=== PATIENT | male | born 1980 | race Hispanic/Latino ===

== ENCOUNTER 2023-02-04 14:55 | Emergency (ER) | payer OTHER ==
[~2023-02-04] VITALS: Ht 177.8 cm; Wt 131.5 kg
[~2023-02-04 14:55] MED LIST: NAPROSYN500 MG PO; ORPHENADRINE C100 MG PO
[2023-02-04 15:12] VITALS: O2SAT 98
== END 2023-02-04 16:24 | disposition home or self-care (01) ==
LOC: ER 15:13
DX: R50.9 Fever, unspecified (principal); B34.9 Viral infection, unspecified; R05.9 Cough, unspecified; F17.210 Nicotine dependence, cigarettes, uncomplicated
CPT/HCPCS: 87400; 99283

== ENCOUNTER 2023-04-17 05:33 | Emergency (ER) | payer OTHER ==
[~2023-04-17] VITALS: Ht 177.8 cm; Wt 131.5 kg
[2023-04-17] MEDS ORDERED: ONDANSETRON HCL INJ 2MG/ML 2ML 2 MG/ML VIAL IV STA (05:45)
[2023-04-17] MEDS ORDERED: SODIUM CHLORIDE 0.9% 1000ML 1,000 ML IV STA (05:45)
[2023-04-17] MEDS ORDERED: KETOROLAC TROMETHAMINE 30 MG/ML VIAL IV STA (05:45)
[2023-04-17 06:01] LABS: BASOPHILS # (AUTO) 0.1 (0.0-0.1); EOSINOPHILS # (AUTO) 0.6 (0.0-0.4); EOSINOPHILS % 8.9 % (0.0-6.0); HEMOGLOBIN 15.5 g/dL (14.0-18.0); LYMPHOCYTES # (AUTO) 1.9 (1.0-3.2); LYMPHOCYTES % 27.2 % (18.0-39.1); MEAN CORPUSCULAR HEMOGLOBIN 31.4 pg (28-32); MEAN CORPUSCULAR VOLUME 95.1 fL (81-99); MONOCYTES # (AUTO) 0.8 (0.2-0.8); NEUTROPHILS # (AUTO) 3.5 (2.1-6.9); NEUTROPHILS % 51.5 % (38.7-80.0); PLATELET COUNT 245 x10e3/uL (140-360); RED BLOOD COUNT 4.94 x10e6/uL (4.3-5.7); RED CELL DISTRIBUTION WIDTH 12.3 % (11.7-14.4); WHITE BLOOD COUNT 6.84 x10e3/uL (4.8-10.8)
[2023-04-17 06:21] LABS: ALBUMIN 3.6 g/dL (3.5-5.0); ALBUMIN/GLOBULIN RATIO 0.9 (0.8-2.0); ANION GAP 14.2 mmol/L (8-16); CALCIUM 9.1 mg/dL (8.4-10.2); CREATININE, SERUM 0.78 mg/dL (0.72-1.25); POTASSIUM 4.2 mmol/L (3.5-5.1); TOTAL PROTEIN 7.4 g/dL (6.5-8.1)
[2023-04-17 06:29] LABS: BILIRUBIN,TOTAL 0.6 mg/dL (0.2-1.2)
[2023-04-17] MEDS ORDERED: ONDANSETRON ODT4 MG PO (07:08)
[2023-04-17] MEDS ORDERED: MUCINEX DM ER1 EAC1 PO (07:08)
[2023-04-17 07:38] VITALS: BP 124/76; PULSE 71; RESP 16; TEMP 98.7; O2SAT 100
== END 2023-04-17 07:41 | disposition home or self-care (01) ==
LOC: ER 05:40
DX: R05.9 Cough, unspecified (principal); J40 Bronchitis, not specified as acute or chronic; B34.9 Viral infection, unspecified; R11.2 Nausea with vomiting, unspecified; Z11.52 Encounter for screening for COVID-19
CPT/HCPCS: 36415; 71046; 80053; 83518; 83690; 85025; 87070; 87400; 99284; J1885; J2405; J7030; U0002

== ENCOUNTER 2023-10-17 13:07 | Emergency (ER) | payer OTHER ==
[~2023-10-17] VITALS: Ht 177.8 cm; Wt 126.1 kg
[~2023-10-17 13:07] MED LIST changes: +MUCINEX DM ER1 EAC1 PO; +ONDANSETRON ODT4 MG PO
[2023-10-17 14:30] VITALS: PULSE 81; RESP 17; TEMP 98; O2SAT 100
[2023-10-17] MEDS ORDERED: ZITHROMAX500 MG PO (17:21)
== END 2023-10-17 17:35 | disposition home or self-care (01) ==
LOC: ER 17:31
DX: R05.9 Cough, unspecified (principal); U07.1 COVID-19; J40 Bronchitis, not specified as acute or chronic; B34.9 Viral infection, unspecified
CPT/HCPCS: 87400; 99282; U0002